=== PATIENT | male | born 1960 | race Caucasian/White ===

== ENCOUNTER 2020-04-07 10:40 | Emergency (ER) | payer MEDICAID ==
[2020-04-07] MEDS ORDERED: Acetaminophen/HYDROcodone 325-5 MG Tab ONE (11:17)
[2020-04-07] MEDS ORDERED: Acetaminophen/HYDROcodone 325-5 MG Tab PO ONE (11:20)
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
== END 2020-04-07 11:41 | disposition home or self-care (01) ==
LOC: JP.ED 10:40
DX: S16.1XXA Strain of muscle, fascia and tendon at neck level, initial encounter (principal); Z88.8 Allergy status to other drugs, medicaments and biological substances; Z90.49 Acquired absence of other specified parts of digestive tract; Z79.82 Long term (current) use of aspirin; Z79.899 Other long term (current) drug therapy; X50.9XXA Other and unspecified overexertion or strenuous movements or postures, initial encounter
CPT/HCPCS: 99283; A9270